=== PATIENT | male | born 1990 | race Caucasian/White ===

== ENCOUNTER 2021-07-15 11:40 | Outpatient (REF) | payer BC, SELFPAY ==
[2021-07-19 10:52] LABS: Hepatitis C Ab w Rflx HCV PCR Negative (Negative)
[2021-07-19 11:40] LABS: HIV-1/2 Ag & Ab Screen Negative (Negative)
[2021-07-19 12:31] LABS: Syphilis Serology (RPR) Negative (Negative)
[2021-07-19 16:12] LABS: GC Result Negative (Negative)
[2021-07-19 20:17] LABS: Chlamydia Result Positive (Negative)
== END 2021-07-15 11:41 | disposition home or self-care (01) ==
LOC: NCHCN 11:40
PROVIDERS: PCP Internal Medicine; Visit Provider Nurse Practitioner Family
DX: Z20.2 Contact with and (suspected) exposure to infections with a predominantly sexual mode of transmission (principal); Z11.3 Encounter for screening for infections with a predominantly sexual mode of transmission; Z11.59 Encounter for screening for other viral diseases; Z11.4 Encounter for screening for human immunodeficiency virus [HIV]
CPT/HCPCS: 86803; 87389; 87491; 87591; 86592

== ENCOUNTER 2021-07-22 19:08 | Outpatient (REF) | payer BC, SELFPAY ==
[2021-07-26 16:09] LABS: Chlamydia Result Negative (Negative); GC Result Negative (Negative)
== END 2021-07-22 19:09 | disposition home or self-care (01) ==
LOC: NCHCN 19:08
PROVIDERS: PCP Internal Medicine; Visit Provider Nurse Practitioner Family
DX: Z20.2 Contact with and (suspected) exposure to infections with a predominantly sexual mode of transmission (principal)
CPT/HCPCS: 87491; 87591